=== PATIENT | male | born 1940 | race Caucasian/White ===

== ENCOUNTER 2019-05-26 06:56 | Day surgery (SDC) | payer BC ==
[2019-05-23 13:46] VITALS: BMI 24.5
[~2019-05-26 06:56] MED LIST: oxyCODONE HCL 10 MG SUSTAINED ACTING TABLET PO ONE
--- NOTE | 2019-05-26 07:48 | HP ---
History & Physical Update - History History: No Change - Physical Physical: No Change - Assessment Assessment: No Change - Plan Plan: No Change
[2019-05-26] MEDS ORDERED: oxyCODONE HCL 10 MG SUSTAINED ACTING TABLET ONE (08:30)
[2019-05-26] MEDS ORDERED: oxyCODONE HCL 10 MG SUSTAINED ACTING TABLET PO ONE (08:35)
[2019-05-26] MEDS ORDERED: LIDOCAINE 1%/EPI 1:100000 (20 ML MULTI DOSE VIAL) ONE (12:24)
[2019-05-26] MEDS ORDERED: DEXAMETHASONE SOD PHOSPHATE/PF 10 MG/ML SDV ONE (13:06)
[2019-05-26] MEDS ORDERED: MIDAZOLAM HCL 2 MG/2 ML SINGLE DOSE VIAL ONE (13:06)
[2019-05-26] MEDS ORDERED: BUPIVACAINE HCL/PF 0.5% (5 MG/ML) 30 ML VIAL IJ ONE (13:06)
[2019-05-26] MEDS ORDERED: PROPOFOL 20 ML ONE ×4 (13:34)
[2019-05-26] MEDS ORDERED: EPHEDRINE SULFATE/0.9% NACL/PF 50 MG/10 ML SYRINGE NR ONE (13:58)
[2019-05-26] MEDS ORDERED: SODIUM CHLORIDE 0.9% P/F 10 ML VIAL IJ ONE (14:16)
[2019-05-26] MEDS ORDERED: DEXAMETHASONE SOD PHOSPHATE 4 MG/1 ML VIAL ONE (15:33)
[2019-05-26] MEDS ORDERED: ONDANSETRON 4 MG/2 ML VIAL ONE (15:33)
[2019-05-26] MEDS ORDERED: LIDOCAINE HCL/PF 2% SDV 5ML VIAL ONE (15:33)
[2019-05-26] MEDS ORDERED: ceFAZolin SODIUM 1 GM VIAL ONE (15:33)
[2019-05-26] MEDS ORDERED: KETOROLAC TROMETHAMINE 30 MG/1 ML VIAL ONE (15:33)
--- NOTE | 2019-05-26 16:00 | OP ---
Operative Note - Note: Operative Date: 05/26/19 Pre-Operative Diagnosis: cervcial stenosis, radiculopathy Operation: s/p anterior cervcial disectomy fusion of C3-C4 and C4-C5 Surgeon: Juan Antonio Collins Housekeeper And Laundry Assistant: Brittany Dobbins Anesthesiologist/INSURANCE CLAIMS ASSISTANT: Zeke Hollis Anesthesia: General Estimated Blood Loss (mls): 20 Fluid Volume Replaced (mls): 1,200 Operative Report Dictated: Yes
--- NOTE | 2019-05-26 16:01 | SURG ---
Surgery Medical Physicist Note Medical Physicist: Brittany Dobbins PA-C Date of Service: 05/26/19 Diagnosis: cervcial stenosis, radiculopathy Procedure: s/p anterior cervcial disectomy fusion of C3-C4 and C4-C5 I was present for the entirety of the operative procedure. For further detail, please refer to operative report. Visit type - Case Type Case Type: Scheduled - Emergency Emergency Visit: No - New patient This patient is new to me today: No
[2019-05-26] MEDS ORDERED: ONDANSETRON 4 MG/2 ML VIAL IVPUSH PRN (16:02)
[2019-05-26] MEDS ORDERED: oxyCODONE HCL 5 MG TABLET PO PRN ×2 (16:02)
[2019-05-26] MEDS ORDERED: DOCUSATE SODIUM 100 MG CAPSULE (FP) PO PRN (16:06)
[2019-05-26] MEDS ORDERED: LACTATED RINGERS SOLUTION 1,000 ML IV SCH (16:15)
[2019-05-26] MEDS: ACETAMINOPHEN 1000 MG/100 ML VIAL (NON FORMULARY) IVPB SCH ×3 (17:00→22:30)
[2019-05-26] MEDS ORDERED: ACETAMINOPHEN INJECTION 100 ML IVPB ONE (17:08)
--- NOTE | 2019-05-26 17:28 | OP ---
DATE OF OPERATION: 05/26/2019 PREOPERATIVE DIAGNOSIS: Cervical stenosis, C3-4, C4-5. POSTOPERATIVE DIAGNOSIS: Cervical stenosis, C3-4, C4-5. PROCEDURE PERFORMED: Anterior cervical diskectomy and fusion, C3-4, C4-5; placement of instrumentation, C3-4, C4-5; placement of prosthetic cage, C3-4, C4-5. SURGEON: Juan Antonio Collins MD CORE CHECKER: ROBERTO Pham ESTIMATED BLOOD LOSS: 50 mL. INTRAVENOUS FLUIDS: Per Anesthesia. ANESTHESIA: General/MCP block. COMPLICATIONS: There were none. DISPOSITION: Patient was brought to the PACU in stable condition. INDICATION FOR SURGERY: The patient is a 78-year-old gentleman who has been suffering from pain from his neck down his arms. X-rays and MRI were completed, which noted that he has cervical stenosis at C3-4 and C4-5. He had gone through an exhaustive course of treatment for this, which included medications, physical therapy as well as injections. Unfortunately, his pain continued to persist despite all this. At this point, risks, benefits, and alternatives were discussed and the patient consented to surgery. OPERATIVE NOTE: The patient was brought to the operating room by the anesthesia staff. After appropriate patient identification was performed, general anesthesia was given, MCP block was given, the patient was placed supine on the OR bed with his arms tucked in at the sides and a shoulder roll was placed underneath his neck to extend his shoulders to the point that he could tolerate in the preoperative holding area. A needle was taped onto his neck to selwyn off the C3-4 level. X-rays taken confirmed this was correct. The needle was removed and 10 mL of lidocaine with epinephrine was injected into his neck. At this time, his neck was prepped and draped in a sterile manner. At this point, a timeout was completed. A 2-inch incision was made on the left side of his neck. Dissection was carried down to the platysma. The platysma was cut in line with the skin incision. Next, the interval between the sternocleidomastoid and strap muscles was developed. Next, the interval between the carotid sheath and tracheal esophagus was developed. A needle was placed onto the C3-C4-5 disk. X -ray was taken to confirm this was correct. The needle was removed. The longus colli muscles were elevated off, retractor blades were placed in distraction was applied across the disks at C3-4 and C4-5 were applied. Melrose pins were placed into the body of C3 and C5 and distraction was applied. At this point, a microscope was brought in. Using a series of pituitaries, Kerrisons, and curettes, diskectomies were completed. The endplates were decorticated at this time. Cages filled with bone graft were placed in. Screws were placed into the bodies of C3, C4, C5. Melrose pins were removed. AP and lateral x-rays confirmed the instrumentation to be in good position. Final tightening was performed. The platysma was closed with 2-0 Vicryl suture. Skin was closed with 3-0 Monocryl suture. Dermabond was applied, Steri-Strips were applied, a sterile dressing was applied. Patient was placed supine on the OR bed, brought to the PACU in stable condition. Fifi BOYER/[id number] MTDMargaret
[2019-05-26] MEDS: DEXAMETHASONE SOD PHOSPHATE 4 MG/1 ML VIAL IVPB SCH (18:30)
[2019-05-26] MEDS: diazePAM 2 MG TABLET PO SCH (18:30)
[2019-05-26] MEDS: CEFAZOLIN 1 GM/D5W 1 GM/50 ML BAG IVPB SCH (22:13)
[2019-05-27] MEDS: DEXAMETHASONE SOD PHOSPHATE 4 MG/1 ML VIAL IVPB SCH ×2 (01:40→10:48)
[2019-05-27] MEDS: ACETAMINOPHEN 1000 MG/100 ML VIAL (NON FORMULARY) IVPB SCH ×2 (03:18→10:48)
[2019-05-27] MEDS: CEFAZOLIN 1 GM/D5W 1 GM/50 ML BAG IVPB SCH (06:39)
[2019-05-27] MEDS: diazePAM 2 MG TABLET PO SCH (06:39)
--- NOTE | 2019-05-27 09:55 | DS ---
Physical Exam: SUBJECTIVE: Patient seen and examined this am. No complaints of CP/SOB. His tingling is less in the tips of his fingers. Voiding on his own. Ambulated yesterday. OBJECTIVE: Vital Signs Temperature 97.8 F 05/27/19 06:00 Pulse Rate 75 05/27/19 06:00 Respiratory Rate 18 05/27/19 06:00 Blood Pressure 130/71 05/27/19 06:00 O2 Sat by Pulse Oximetry (%) 97 05/27/19 06:00 PHYSICAL EXAM GENERAL: The patient is awake, alert, and fully oriented, in no acute distress. NECK: Trachea midline, supple. Incision c/d/i. No swelling or bleeding noted. Soft. Soft cervical collar in place. LUNGS: Breath sounds equal.. HEART: Regular rate and rhythm. ABDOMEN: Soft, nontender, nondistended. EXTREMITIES: No edema or swelling noted b/l. SCDs in place. 5/5 dorsi/plantar flexion b/l. Car Salesman strength equal b/l. Flexion/extension b/l 5/5. NEUROLOGICAL: 5/5 dorsi/plantar flexion b/l. Car Salesman strength equal b/l. Flexion/ extension b/l 5/5. LABS HOSPITAL COURSE: The patient was admitted to the Med-Surg Unit after an elective repair of their cervical stenosis. Now, s/p ACDF C3-4 and C4-5. The day of surgery, the patient ambulated the hallways with assistance. Narcotic and non-narcotic pain management control was achieved with an oral and IV approach. An xray was obtained and confirmed hardware placement at C3-4 and C4-5, no fractures or dislocations. Kady-operative IV ABX were administered. DVT prophylaxis was achieved with SCDs and early ambulation. The patient ambulated with Physical Therapy and no services were recommended upon discharge. Narcotic scripts and or muscle relaxants were checked with [facility] prior to escibe. The discharge instructions and an oral pain management plan were reviewed with the patient. All questions answered. Above plan discussed with Dr. Collins and agreed. Minutes to complete discharge: 20 <Brittany Dobbins - Last Filed: 05/27/19 09:49> Physical Exam: SUBJECTIVE: Patient seen and examined OBJECTIVE: Vital Signs Temperature 98.6 F 05/27/19 14:14 Pulse Rate 76 05/27/19 14:14 Respiratory Rate 20 /20/19 14:14 Blood Pressure 115/58 L 05/27/19 14:14 O2 Sat by Pulse Oximetry (%) 95 05/27/19 14:14 PHYSICAL EXAM GENERAL: The patient is awake, alert, and fully oriented, in no acute distress. HEAD: Normal with no signs of trauma. EYES: PERRL, extraocular movements intact, sclera anicteric, conjunctiva clear. ENT: Ears normal, nares patent, oropharynx clear without exudates, moist mucous membranes. NECK: Trachea midline, full range of motion, supple. LUNGS: Breath sounds equal, clear to auscultation bilaterally, no wheezes, no crackles, no accessory muscle use. HEART: Regular rate and rhythm, S1, S2 without murmur, rub or gallop. ABDOMEN: Soft, nontender, nondistended, normoactive bowel sounds, no guarding, no rebound, no hepatosplenomegaly, no masses. EXTREMITIES: 2+ pulses, warm, well-perfused, no edema. NEUROLOGICAL: Cranial nerves II through XII grossly intact. Normal speech, gait not observed. PSYCH: Normal mood, normal affect. SKIN: Warm, dry, normal turgor, no rashes or lesions noted. LABS CBC,CMP POC Glucometer 177 UNITS (80-120) 05/27/19 11:52 HOSPITAL COURSE: Date of Admission:05/26/19 Date of Discharge: 05/30/19 Patient seen and examined Agree with Above D/C planning <Juan Antonio Collins - Last Filed: 05/30/19 13:52> Visit type - Case Type Case Type: Scheduled - Emergency Emergency Visit: No - New patient This patient is new to me today: No <Brittany Dobbins - Last Filed: 05/27/19 09:49>
--- NOTE | 2019-05-27 10:10 | PN ---
Progress Note (short form) - Note Progress Note: ANESTHESIA POSTOP 78 YO MALE POD#1 S/P ACDF, GETA Patient resting in bed. Tolerating po. Ambulating. Pain adequately controlled VSS, Afebrile Continue current care. Encouraged IS. No anesthetic complications
[2019-05-27 14:15] VITALS: BP 115/58; PULSE 76; TEMP 98.6
--- NOTE | 2019-06-02 09:14 | PATH ---
Surgical Pathology Report Patient Name: NATHALIA JOHNSON Med. Rec. #: [id number] /Age/Gender: 1940 (Age: 78) / M Account: [id number] Location: [facility] Taken: 05/26/2019 Received: 05/26/2019 Reported: 06/02/2019 Physicians: Juan Antonio Collins M.D. Specimen(s) Received DISC C3-4,C4-5 Clinical History Cervical stenosis Final Diagnosis C3-4, C4-5 DISC, DISCECTOMY: CARTILAGE WITH DEGENERATIVE CHANGES. Electronically Signed Kathe Griffith M.D. Gross Description Received in formalin, labeled "C3-4, C4-5 disc" is a 2.5 x 2 x 1 cm aggregate of brown-obrien and dark obrien fibrocartilaginous tissue. Manager Estate tissue is submitted in one cassette. AE/05/30/2019 ebram/05/30/2019
== END 2019-05-27 14:25 | disposition home or self-care (01) ==
LOC: FASUSAT 06:56 → FASU 06:56 → EDBD 11:15 → FM/S 17:25 → FASUSAT 05-27 14:25
PROVIDERS: ATTEND Orthopaedic Surgery Orthopaedic Surgery of the Spine
PROC: 0RG10A0 Fusion of Cervical Vertebral Joint with Interbody Fusion Device, Anterior Approach, Anterior Column, Open Approach (ICD-10-PCS; 2019-05-26)
PROC: 0RG10K0 Fusion of Cervical Vertebral Joint with Nonautologous Tissue Substitute, Anterior Approach, Anterior Column, Open Approach (ICD-10-PCS; 2019-05-26)
PROC: 0RB30ZZ Excision of Cervical Vertebral Disc, Open Approach (ICD-10-PCS; principal; 2019-05-26 14:19)
DX: M48.02 Spinal stenosis, cervical region (principal)
CPT/HCPCS: 72050-TC-FY; 82962; 88304-TC; 94760; 97116-GP; 97161-GP; J0131